=== PATIENT | male | born 1940 | race Caucasian/White ===

== ENCOUNTER 2016-05-25 08:15 | Observation (INO) | payer MEDICARE ==
[~2016-05-25] VITALS: Ht 188 cm; Wt 111.0 kg
[~2016-05-25 08:15] MED LIST: AVODART0.5 MG PO; BL ADULT ASA81 MG PO; COREG12.5 MG PO; FLOMAX0.4 M1 PO; HUMALOG KW75 MG/25 K SC; HUMALOG100 UNIT/M SC; LASIX 40 MG TAB40 MG PO; LEVEMIR FLEXPEN SC; LEVOTHYROXIN125 MC1 PO; LISINOPRIL5 MG PO; PLAVIX75 MG PO; STOOL SOFTENER100 M1 PO; TYLENOL 500MG TAB PO; ULTRAM50 M1 PO
[2016-05-25 09:33] LABS: HEMATOCRIT 44.9 % (39.0-50.0); HEMOGLOBIN 15.2 g/dl (14.0-18.0); IMMATURE GRANULOCYTES 0.3 % (0.0-1.0); MEAN CELL VOLUME 86.3 fL CALC (80.0-100.0); MEAN CORPUSCULAR HGB 29.2 pG CALC (26.0-32.0); MEAN CORPUSCULAR HGB CONC 33.9 g/L CALC (32.0-36.0); NEUT# 4.6 thou/uL (1.82-7.42); RED BLOOD COUNT 5.2 mill/uL (4.70-6.10); RED CELL DISTRI WIDTH 15.6 % (11.5-15.5)
[2016-05-25 09:38] LABS: URINE BILIRUBIN - DIPSTICK NEGATIVE (NEGATIVE); URINE BLOOD DIPSTICK NEGATIVE (NEGATIVE); URINE CLARITY CLEAR; URINE COLOR YELLOW; URINE GLUCOSE - DIPSTICK 250 mg/dL (NEGATIVE); URINE KETONE NEGATIVE (NEGATIVE); URINE LEUK ESTERASE NEGATIVE (NEGATIVE); URINE NITRITE - DIPSTICK NEGATIVE (Negative); URINE PROTEIN - DIPSTICK NEGATIVE (NEG-TRACE)
[2016-05-25 09:47] LABS: INTERNATIONAL NORMALIZED RATIO 1.1 RATIO (0.7-1.3); PROTHROMBIN TIME 11.7 SECONDS (9.0-12.5)
[2016-05-25 09:47] LABS: BARBITURATES NEGATIVE (NEGATIVE); COCAINE NEGATIVE (NEGATIVE); METHADONE NEGATIVE (NEGATIVE); OXCYCODONE NEGATIVE (NEGATIVE); TETRAHYDROCANNABIONOL NEGATIVE (NEGATIVE); TRICYLIC ANTIDEPRESSANTS NEGATIVE (NEGATIVE)
[2016-05-25 09:50] LABS: ALKALINE PHOSPHATASE 216 u/l (38-126); ANION GAP 13 (6-22 (CALC)); BILIRUBIN, TOTAL 2.2 mg/dL (0.0-1.4); BUN 22 mg/dL (8-23); BUN/CREATININE RATIO 25 (12-20 (CALC)); CALCIUM 9.2 mg/dL (8.4-10.2); CARBON DIOXIDE 31 mmol/l (22-30); CHLORIDE 99 mmol/l (95-108); CREATININE 0.9 mg/dL (0.7-1.3); ETHYL ALCOHOL 0 mg/dl (0-30); GFR > 60 ML/MIN (>=60 (CALC)); GFR FOR AFR.AMER. > 60 ML/MIN (>=60 (CALC)); GLUCOSE 230 mg/dL (82-115); POTASSIUM 4.1 mmol/l (3.5-5.1); SGOT/AST 85 u/l (19-48); SGPT/ALT 33 u/l (11-66); SODIUM 138 mmol/l (137-146); TOTAL PROTEIN 6.5 g/dL (6.3-8.2)
[2016-05-25 10:06] LABS: MYOGLOBIN 759 ng/mL (0 - 121)
[2016-05-25] MEDS ORDERED: SPIRONOLACT100 MG PO (11:17)
[2016-05-25] MEDS ORDERED: ONDANSETRON HCL4 MG PO (11:19)
[2016-05-25] MEDS ORDERED: LEVEMIR1000 UNITS SC (11:19)
[2016-05-25] MEDS ORDERED: SERTRALINE HCL50 MG PO (11:21)
[2016-05-25] MEDS ORDERED: DILAUDID 2MG2 MG/TA1 PO (11:22)
[2016-05-25] MEDS ORDERED: NITROSTAT0.4 MG SL (11:23)
[2016-05-25 13:26] VITALS: BP 151/82
[2016-05-25 16:35] VITALS: BP 160/76
[2016-05-25 19:55] VITALS: BP 146/84
[2016-05-25 23:49] VITALS: BP 123/67
[2016-05-26 03:15] VITALS: BP 132/72
[2016-05-26 06:36] LABS: HEMATOCRIT 46.4 % (39.0-50.0); HEMOGLOBIN 15.4 g/dl (14.0-18.0); IMMATURE GRANULOCYTES 0.1 % (0.0-1.0); MEAN CELL VOLUME 86.9 fL CALC (80.0-100.0); MEAN CORPUSCULAR HGB 28.8 pG CALC (26.0-32.0); MEAN CORPUSCULAR HGB CONC 33.2 g/L CALC (32.0-36.0); NEUT# 3.58 thou/uL (1.82-7.42); RED BLOOD COUNT 5.34 mill/uL (4.70-6.10); RED CELL DISTRI WIDTH 15.9 % (11.5-15.5)
[2016-05-26 06:53] LABS: ALKALINE PHOSPHATASE 217 u/l (38-126); ANION GAP 13 (6-22 (CALC)); BILIRUBIN, TOTAL 1.6 mg/dL (0.0-1.4); BUN 21 mg/dL (8-23); BUN/CREATININE RATIO 24 (12-20 (CALC)); CALCIUM 9.4 mg/dL (8.4-10.2); CARBON DIOXIDE 30 mmol/l (22-30); CHLORIDE 102 mmol/l (95-108); CREATININE 0.9 mg/dL (0.7-1.3); GFR > 60 ML/MIN (>=60 (CALC)); GFR FOR AFR.AMER. > 60 ML/MIN (>=60 (CALC)); GLUCOSE 98 mg/dL (82-115); POTASSIUM 4.3 mmol/l (3.5-5.1); SGOT/AST 87 u/l (19-48); SGPT/ALT 34 u/l (11-66); SODIUM 141 mmol/l (137-146); TOTAL PROTEIN 6.6 g/dL (6.3-8.2)
[2016-05-26 09:00] VITALS: BP 135/56
[2016-05-26 09:20] VITALS: BP 135/56
== END 2016-05-26 13:48 | disposition home or self-care (01) ==
LOC: ENPENDDIS → ED 08:15 → ED-I 11:25 → ED 11:33 → MS2 11:34
PROVIDERS: Emergency Medicine; ADMIT Internal Medicine; ATTEND Internal Medicine
DX: G93.40 Encephalopathy, unspecified (principal); I82.0 Budd-Chiari syndrome; E11.9 Type 2 diabetes mellitus without complications; I10 Essential (primary) hypertension; I25.10 Atherosclerotic heart disease of native coronary artery without angina pectoris; G25.81 Restless legs syndrome; K74.69 Other cirrhosis of liver; E83.119 Hemochromatosis, unspecified; K76.6 Portal hypertension; E86.0 Dehydration; Z95.5 Presence of coronary angioplasty implant and graft; Z79.01 Long term (current) use of anticoagulants; Z79.4 Long term (current) use of insulin; R94.31 Abnormal electrocardiogram [ECG] [EKG]

== ENCOUNTER 2016-11-19 07:25 | Emergency (ER) | payer MEDICARE ==
[~2016-11-19] VITALS: Ht 190.5 cm; Wt 100.0 kg
[~2016-11-19 07:25] MED LIST changes: +DILAUDID 2MG2 MG/TA1 PO; +LEVEMIR1000 UNITS SC; +NITROSTAT0.4 MG SL; +ONDANSETRON HCL4 MG PO; +SERTRALINE HCL50 MG PO; +SPIRONOLACT100 MG PO
[2016-11-19 08:04] LABS: HEMATOCRIT 36.4 % (39.0-50.0); HEMOGLOBIN 12.7 g/dl (14.0-18.0); IMMATURE GRANULOCYTES 0.4 % (0.0-1.0); MEAN CELL VOLUME 92.4 fL CALC (80.0-100.0); MEAN CORPUSCULAR HGB 32.2 pG CALC (26.0-32.0); MEAN CORPUSCULAR HGB CONC 34.9 g/L CALC (32.0-36.0); NEUT# 4.59 thou/uL (1.82-7.42); RED BLOOD COUNT 3.94 mill/uL (4.70-6.10); RED CELL DISTRI WIDTH 15.9 % (11.5-15.5)
[2016-11-19 08:17] LABS: INTERNATIONAL NORMALIZED RATIO 1.1 RATIO (0.7-1.3)
[2016-11-19 08:24] LABS: ALBUMIN 2.9 g/dL (3.2-5.0); ALKALINE PHOSPHATASE 654 u/l (38-126); AMYLASE 33 u/l (30-110); ANION GAP 14 (6-22 (CALC)); BILIRUBIN, TOTAL 1.8 mg/dL (0.0-1.4); BUN 29 mg/dL (8-23); BUN/CREATININE RATIO 20 (12-20 (CALC)); CALCIUM 8.6 mg/dL (8.4-10.2); CARBON DIOXIDE 24 mmol/l (22-30); CHLORIDE 102 mmol/l (95-108); CREATININE 1.4 mg/dL (0.7-1.3); GFR 49 ML/MIN (>=60 (CALC)); GFR FOR AFR.AMER. 60 ML/MIN (>=60 (CALC)); GLUCOSE 83 mg/dL (82-115); LIPASE 28 u/l (23-300); POTASSIUM 4.2 mmol/l (3.5-5.1); SGOT/AST 146 u/l (19-48); SGPT/ALT 61 u/l (11-66); SODIUM 135 mmol/l (137-146); TOTAL PROTEIN 7.1 g/dL (6.3-8.2)
[2016-11-19 08:35] LABS: MYOGLOBIN 74 ng/mL (0 - 121)
[2016-11-19 10:00] LABS: URINE BILIRUBIN - DIPSTICK NEGATIVE (NEGATIVE); URINE BLOOD DIPSTICK NEGATIVE (NEGATIVE); URINE CLARITY CLEAR; URINE COLOR YELLOW; URINE GLUCOSE - DIPSTICK NEGATIVE (NEGATIVE); URINE KETONE NEGATIVE (NEGATIVE); URINE LEUK ESTERASE NEGATIVE (NEGATIVE); URINE NITRITE - DIPSTICK NEGATIVE (Negative); URINE PROTEIN - DIPSTICK NEGATIVE (NEG-TRACE)
[2016-11-19 11:09] VITALS: BP 121/75
[2016-11-19 13:01] VITALS: BP 121/75
== END 2016-11-19 12:40 | disposition home or self-care (01) ==
LOC: ED 07:25 → ED-I 10:19 → ED 10:48 → ED-I 10:49
PROVIDERS: Emergency Medicine
DX: R18.8 Other ascites (principal); K74.60 Unspecified cirrhosis of liver; K56.41 Fecal impaction; E11.9 Type 2 diabetes mellitus without complications; I10 Essential (primary) hypertension; I82.0 Budd-Chiari syndrome; Z95.5 Presence of coronary angioplasty implant and graft

== ENCOUNTER 2016-11-30 15:21 | Emergency (ER) | payer MEDICARE ==
[~2016-11-30] VITALS: Ht 190.5 cm; Wt 110.0 kg
[2016-11-30 15:59] LABS: HEMATOCRIT 33.2 % (39.0-50.0); HEMOGLOBIN 11.1 g/dl (14.0-18.0); IMMATURE GRANULOCYTES 0.6 % (0.0-1.0); MEAN CELL VOLUME 93.8 fL CALC (80.0-100.0); MEAN CORPUSCULAR HGB 31.4 pG CALC (26.0-32.0); MEAN CORPUSCULAR HGB CONC 33.4 g/L CALC (32.0-36.0); NEUT# 3.59 thou/uL (1.82-7.42); RED BLOOD COUNT 3.54 mill/uL (4.70-6.10); RED CELL DISTRI WIDTH 16.1 % (11.5-15.5)
[2016-11-30 16:19] LABS: ALBUMIN 2.6 g/dL (3.2-5.0); ALKALINE PHOSPHATASE 405 u/l (38-126); ANION GAP 13 (6-22 (CALC)); BILIRUBIN, TOTAL 1.9 mg/dL (0.0-1.4); BUN 17 mg/dL (8-23); BUN/CREATININE RATIO 18 (12-20 (CALC)); CALCIUM 7.9 mg/dL (8.4-10.2); CARBON DIOXIDE 24 mmol/l (22-30); CHLORIDE 103 mmol/l (95-108); CREATININE 0.9 mg/dL (0.7-1.3); GFR > 60 ML/MIN (>=60 (CALC)); GFR FOR AFR.AMER. > 60 ML/MIN (>=60 (CALC)); GLUCOSE 109 mg/dL (82-115); POTASSIUM 4.4 mmol/l (3.5-5.1); SGOT/AST 151 u/l (19-48); SGPT/ALT 39 u/l (11-66); SODIUM 135 mmol/l (137-146); TOTAL PROTEIN 6.3 g/dL (6.3-8.2)
[2016-11-30 17:21] VITALS: BP 112/60
== END 2016-11-30 17:23 | disposition home or self-care (01) ==
LOC: ED 15:21
PROVIDERS: Emergency Medicine
DX: E11.649 Type 2 diabetes mellitus with hypoglycemia without coma (principal); Z79.4 Long term (current) use of insulin; R53.1 Weakness; E11.621 Type 2 diabetes mellitus with foot ulcer; R41.82 Altered mental status, unspecified; I10 Essential (primary) hypertension

== ENCOUNTER 2017-02-19 06:23 | Emergency (ER) | payer MEDICARE ==
[~2017-02-19] VITALS: Ht 190.5 cm; Wt 84.0 kg
[2017-02-19 07:11] LABS: HEMATOCRIT 30.6 % (39.0-50.0); HEMOGLOBIN 10.2 g/dl (14.0-18.0); IMMATURE GRANULOCYTES 0.9 % (0.0-1.0); MEAN CELL VOLUME 101.7 fL CALC (80.0-100.0); MEAN CORPUSCULAR HGB 33.9 pG CALC (26.0-32.0); MEAN CORPUSCULAR HGB CONC 33.3 g/L CALC (32.0-36.0); NEUT# 10.24 thou/uL (1.82-7.42); RED BLOOD COUNT 3.01 mill/uL (4.70-6.10); RED CELL DISTRI WIDTH 15.9 % (11.5-15.5)
[2017-02-19 07:23] LABS: ALBUMIN 2.3 g/dL (3.2-5.0); ALKALINE PHOSPHATASE 436 u/l (38-126); ANION GAP 13 (6-22 (CALC)); BILIRUBIN, TOTAL 5.5 mg/dL (0.0-1.4); BUN 19 mg/dL (8-23); BUN/CREATININE RATIO 16 (12-20 (CALC)); CALCIUM 8.1 mg/dL (8.4-10.2); CARBON DIOXIDE 25 mmol/l (22-30); CHLORIDE 103 mmol/l (95-108); CREATININE 1.2 mg/dL (0.7-1.3); GFR 59 ML/MIN (>=60 (CALC)); GFR FOR AFR.AMER. > 60 ML/MIN (>=60 (CALC)); GLUCOSE 144 mg/dL (82-115); POTASSIUM 4.7 mmol/l (3.5-5.1); SGOT/AST 170 u/l (19-48); SGPT/ALT 27 u/l (11-66); SODIUM 137 mmol/l (137-146); TOTAL PROTEIN 6.1 g/dL (6.3-8.2)
[2017-02-19 07:43] LABS: INTERNATIONAL NORMALIZED RATIO 1.2 RATIO (0.7-1.3); PROTHROMBIN TIME 13.3 SECONDS (9.0-12.5)
[2017-02-19] MEDS ORDERED: FINASTERIDE5 MG PO (08:14)
[2017-02-19 09:20] VITALS: BP 105/63
== END 2017-02-19 09:00 | disposition home or self-care (01) ==
LOC: ED 06:23
PROVIDERS: Emergency Medicine
DX: K91.840 Postprocedural hemorrhage of a digestive system organ or structure following a digestive system procedure (principal); Z79.02 Long term (current) use of antithrombotics/antiplatelets